=== PATIENT | female | born 1965 | race Caucasian/White ===

== ENCOUNTER 2023-03-27 12:44 | Emergency (ER) | payer MEDICAID, MEDICARE ==
[2023-03-27] MEDS ORDERED: Bacitracin 1 PK ONE (17:26)
== END 2023-03-27 17:43 | disposition home or self-care (01) ==
LOC: ERS 12:44
DX: M79.604 Pain in right leg (principal); M25.551 Pain in right hip; L89.319 Pressure ulcer of right buttock, unspecified stage; L89.159 Pressure ulcer of sacral region, unspecified stage; F17.210 Nicotine dependence, cigarettes, uncomplicated
CPT/HCPCS: 72170